=== PATIENT | female | born 1970 | race Caucasian/White ===

== ENCOUNTER 2016-07-05 18:07 | Emergency (ER) | payer BC ==
[2016-07-05 19:04] VITALS: TEMP 98.2; BMI 21.1
[2016-07-05 19:23] LABS: AUTOMATED BASOPHIL 1.2 % (0-2); AUTOMATED EOSINOPHIL 1.4 % (0-5); AUTOMATED LYMPH 21.7 % (17-44); AUTOMATED MONOCYTE 6.7 % (3-10); MPV 10.5 fL (7.4-10.4)
[2016-07-05] MEDS ORDERED: METRONIDAZOLE 500 MG TAB PO ONE (19:51)
[2016-07-05] MEDS ORDERED: CIPROFLOXACIN HCL 500 MG TAB PO ONE (19:51)
[2016-07-05] MEDS ORDERED: OXYCODONE HCL 5 MG TABLET PO ONE (19:51)
[2016-07-05] MEDS ORDERED: METHYLPREDNISOLONE 125 MG/2 ML VIAL IM ONE (19:51)
[2016-07-05 19:52] LABS: LEUKOCYTES/URINE NEG (NEGATIVE); NITRITE/URINE NEG (NEGATIVE); RBC/URINE 0-2 (0-5); URINE OCCULT BLOOD NEG (NEG/TRACE)
[2016-07-05] MEDS ORDERED: DICYCLOMINE 10 MG/5 ML SYRUP PO ONE (19:52)
--- NOTE | 2016-07-05 19:54 | EDPRACDOC ---
- General Information Chief Complaint: Abdominal Pain Stated Complaint: ABDOMINAL PAIN Time Seen by Provider: 07/05/16 19:38 Information Source: Patient Mode Of Arrival: Car Home Medications: Home Medications Butalb/Acetaminophen/Caffeine [Fioricet Tablet (50mg/325mg/40mg)] 2 tab PO Q4H PRN 07/05/16 Ciprofloxacin HCl [Cipro] 500 mg PO .BID X 10D 07/05/16 Ciprofloxacin HCl [Cipro] 500 mg PO BID #20 tab 07/05/16 Dicyclomine HCl [Bentyl] 20 mg PO Q6H #30 tablet 07/05/16 Metronidazole [Flagyl] 500 mg PO BID 07/05/16 Metronidazole [Flagyl] 500 mg PO TID #30 tab 07/05/16 Oxycodone Immediate Release [Oxycodone Immediate Release (OxyIR)] 5 mg PO Q4H PRN #20 tab 07/05/16 Prednisone [Deltasone] 20 mg PO BID #12 tablet 07/05/16 Allergies/Adverse Reactions: Allergies Allergy/AdvReac Type Severity Reaction Status Date / Time No Known Allergies Allergy Verified 07/03/15 21:45 - History of Present Illness Onset: 1 week HPI: PT PRESENTS TO ED WITH DIFFUSE ABD CRAMPING WITH DIARRHEA FOR APPROX 1 WEEK. STATES SHE HAS CROHNS DZ AND THIS FEELS LIKE A FLARE UP. Pain Location: Reports: Diffuse Pain Context: Reports: Spontaneous Pain Severity: Moderate Pain Quality: Reports: Aching, Cramping, Sharp Pain Radiation: Reports: No Radiation : No Control Method: Reports: None Adult Abdominal History: Reports: Similar Pain (dx) Modifying Factors: improves with: Nothing Female Associated Signs & Symptoms: Reports: Diarrhea, Other (ABD PAIN CRAMPING AND INTERMITTENT DIARRHEA) Oral Intake: Normal Urinary Output: Normal ED Past Medical History - History Reviewed Yes Nurses notes reviewed and agree except as marked Travel Outside of [place] in the Last 3 Months?: No - Patient Medical History Cardiac History: Reports: Hypertension GI/ History: Reports: IBD (CROHNS) Psychological History: Denies: Depression Systemic History: Reports: Anemia. Denies: Cancer - Family Medical History Reports: Diabetes (grandmother), Cancer (aunts), Stroke (father), Cardiac Disorders (FATHER). Denies: Hypertension - Social Medical History Smoking Status: Heavy tobacco smoker (5 or more cigarettes/day or daily pipe/ cigar) ETOH: None Substance Abuse: None Lives With: Other Lives In: Home EDM Review of Systems - Review of Systems ROS Negative Except as Marked: Yes All systems reviewed and were negative except as marked Constitutional: No Symptoms Reported. negative: Fever, Chills, Weakness, Fatigue, Loss of Appetite Eyes: No Symptoms Reported. negative: Redness, Blurred Vision, Double Vision, Discharge, Pain, Light Sensitive, Photophobia Ears: No Symptoms Reported. negative: Pain, Hearing Loss, Drainage, Ear Pulling Throat: No Symptoms Reported. negative: Pain, Swelling Nose: No Symptoms Reported. negative: Congestion, Bleeding, Discharge, Injection, Swelling, Deformity, Ecchymosis, Tender, Abrasion, Laceration Mouth: No Symptoms Reported. negative: Pain, Drooling Respiratory: No Symptoms Reported. negative: Cough, Brassy Cough, Barky Cough, Shortness of Breath, Wheezing, Hemoptysis Cardiovascular: No Symptoms Reported. negative: Chest Pain, Palpitations, Syncope, Edema, Orthopnea, PND, Skin Mottling, Cyanosis Gastrointestinal: Diarrhea, Pain. negative: Constipation, Formula Intolerance, Melena, Nausea, Vomiting Genitourinary: No Symptoms Reported. negative: Dysuria, Hematuria, Frequency, Discharge, Bleeding, Testicular Pain, Neurological: No Symptoms Reported. negative: Headache, Dizziness, Seizure, Numbness, Weakness, Speech Difficulty, Gait Difficulty Musculoskeletal: No Symptoms Reported. negative: Neck, Chestwall, Ribs, Back, Shoulder, Arm, Elbow, Forearm, Wrist, Hand, Pelvis, Hip, Femur, Knee, Leg, Ankle , Foot Integumentary: No Symptoms Reported. negative: Itching, Rash, Bruising, Wound Allergic/Immunologic: No Symptoms Reported. negative: Hives, Itching Hematologic: No Symptoms Reported. negative: Lymphadenopathy, Easy Bruising, Easy Bleeding Endocrine: No Symptoms Reported. negative: Weight Gain, Weight Loss Psychiatric: No Symptoms Reported. negative: Anxiety, Depression, Hallucinations, Insomnia, Suicidal - Physical Exam Constitutional: No apparent distress, Alert Oriented to: Time, Person, Place Last recorded Vital Signs: Last Vital Signs Temp 98.2 F 07/05/16 19:00 Pulse 67 07/05/16 20:22 Resp 20 07/05/16 20:22 BP 169/84 07/05/16 20:22 Pulse Ox 99 07/05/16 20:22 Oxygen Pulse Oxygen Saturation 99 O2 Device Room Air Oxygen Flow Rate Fraction of Inspired Oxygen ( FIO2) - HEENT Head: Normal ( normocephalic) Eye Exam: Normal (PERRL, EOMI, Sclera white) Oropharynx: Normal (Pharynx:Moist without exudate,Gums-no swelling) Tympanic Membrane: Normal ENT EAC: Normal TMJ: Normal Nose: No Symptoms Reported (septum midline) Neck: Normal (FROM, trachea at midline) - Respiratory/Cardiovascular Respiratory: Normal - CTA (BBS clear to auscultation without adventitious sounds ) Cardiovascular: Normal (RRR without murmur, gallop or rub) - GI Auscultation: Normal (NABS) Palpation: Normal (Soft,No rebound or guarding, non distended) Tenderness: Diffuse, Mild Sommer's Sign: Negative - Musculoskeletal Back: Normal (Non-Tender) Extremities: Normal (Normal tone, Pulses 2+ No cyanosis or edema, FROM) - Integumentary Skin: Normal, Warm, Dry Lymphatics: Normal (no adenopathy) - Neurologic Memory Impaired: Normal Motor Function: Normal (Normal tone, Pulses 2+ No cyanosis or edema, FROM) Cranial Nerve: Normal (CN II-X11 intact sensation, strength 5/5) Cerebellar: Normal Mood Description: Normal Perception: Normal - Differential Diagnosis Constipation, IBS, Inflammatory Bowel Dz, Other - Re-evaluation Re-evaluation 1 Re-evaluation Time: 20:52 (PT STATES FEELING SOME BETTER) - Results 07/05/16 19:03 07/05/16 19:03 WBC 5.8 xk/uL (3.8-10.8) 07/05/16 19:03 RBC 5.00 xM/uL (4.20-5.40) 07/05/16 19:03 Hgb 12.7 g/dL (12.0-16.0) 07/05/16 19:03 Hct 40.2 % (36-47) 07/05/16 19:03 MCV 80 fL (81-99) L 07/05/16 19:03 MCH 25.4 pg (27-32) L 07/05/16 19:03 MCHC 31.7 g/dl (33-36) L 07/05/16 19:03 RDW 18.6 % (11.5-14.5) H 07/05/16 19:03 Plt Count 274 xk/uL (130-400) 07/05/16 19:03 MPV 10.5 fL (7.4-10.4) H 07/05/16 19:03 Neut % (Auto) 69.0 % (45-76) 07/05/16 19:03 Lymph % (Auto) 21.7 % (17-44) 07/05/16 19:03 [place] % (Auto) 6.7 % (3-10) 07/05/16 19:03 Eos % (Auto) 1.4 % (0-5) 07/05/16 19:03 Baso % (Auto) 1.2 % (0-2) 07/05/16 19:03 Absolute Neuts (auto) 4.00 xk/uL (1.7-8.2) 07/05/16 19:03 Absolute Lymphs (auto) 1.22 xk/uL (0.65-4.75) 07/05/16 19:03 Sodium 137 mEq/L (137-146) 07/05/16 19:03 Potassium 4.0 mEq/L (3.5-5.1) 07/05/16 19:03 Chloride 105 mEq/L (98-107) 07/05/16 19:03 Carbon Dioxide 24 mMOL/L (22-33) 07/05/16 19:03 Anion Gap 12 mEq/L (8-16) 07/05/16 19:03 BUN 10 MG/DL (7-17) 07/05/16 19:03 Creatinine 0.50 MG/DL (0.52-1.04) L 07/05/16 19:03 Estimated GFR (MDRD) > 60 mL/min (>=60) 07/05/16 19:03 Glucose 89 MG/DL (70-99) 07/05/16 19:03 Calculated Osmolality 262 MOs/Kg (270-290) L 07/05/16 19:03 Calcium 8.6 MG/DL (8.4-10.2) 07/05/16 19:03 Corrected Calcium 8.8 MG/DL (8.4-10.2) 07/05/16 19:03 Total Bilirubin 0.3 MG/DL (0.2-1.3) 07/05/16 19:03 AST 20 IU/L (14-36) 07/05/16 19:03 ALT 25 IU/L (9-52) 07/05/16 19:03 Alkaline Phosphatase 61 IU/L (38-126) 07/05/16 19:03 Total Protein 6.9 G/DL (6.3-8.2) 07/05/16 19:03 Albumin 3.8 G/DL (3.5-5.0) 07/05/16 19:03 Lipase 50 U/L (23-300) 07/05/16 19:03 Urine Color Yellow 07/05/16 19:03 Urine Clarity Clear 07/05/16 19:03 Urine pH 5.0 (5.0-8.0) 07/05/16 19:03 Ur Specific [place] 1.015 (1.003-1.035) 07/05/16 19:03 Urine Protein Neg (NEG/TRACE) 07/05/16 19:03 Urine Glucose (UA) Neg (NEGATIVE) 07/05/16 19:03 Urine Ketones Neg (NEGATIVE) 07/05/16 19:03 Urine Occult Blood Neg (NEG/TRACE) 07/05/16 19:03 Urine Nitrite Neg (NEGATIVE) 07/05/16 19:03 Urine Bilirubin Neg (NEGATIVE) 07/05/16 19:03 Urine Urobilinogen <2.0 MG/DL (0-1) 07/05/16 19:03 Ur Leukocyte Esterase Neg (NEGATIVE) 07/05/16 19:03 Urine RBC 0-2 (0-5) 07/05/16 19:03 Ur Epithelial Cells 1+ 07/05/16 19:03 Urine Mucus Occ (NEG/OCC) 07/05/16 19:03 Lab Results 07/05/16 07/05/16 07/05/16 19:03 19:03 19:03 WBC 5.8 RBC 5.00 Hgb 12.7 Hct 40.2 MCV 80 L MCH 25.4 L MCHC 31.7 L RDW 18.6 H Plt Count 274 MPV 10.5 H Neut % (Auto) 69.0 Lymph % (Auto) 21.7 [place] % (Auto) 6.7 Eos % (Auto) 1.4 Baso % (Auto) 1.2 Absolute Neuts (auto) 4.00 Absolute Lymphs (auto) 1.22 Sodium 137 Potassium 4.0 Chloride 105 Carbon Dioxide 24 Anion Gap 12 BUN 10 Creatinine 0.50 L Estimated GFR (MDRD) > 60 Glucose 89 Calculated Osmolality 262 L Calcium 8.6 Corrected Calcium 8.8 Total Bilirubin 0.3 AST 20 ALT 25 Alkaline Phosphatase 61 Total Protein 6.9 Albumin 3.8 Lipase 50 Urine Color Yellow Urine Clarity Clear Urine pH 5.0 Ur Specific [place] 1.015 Urine Protein Neg Urine Glucose (UA) Neg Urine Ketones Neg Urine Occult Blood Neg Urine Nitrite Neg Urine Bilirubin Neg Urine Urobilinogen <2.0 Ur Leukocyte Esterase Neg Urine RBC 0-2 Ur Epithelial Cells 1+ Urine Mucus Occ Decision Time to Discharge: 20:53 - Departure Disposition: Home Condition: Stable Final Diagnosis: ACUTE EXACERBATION OF CROHNS DISEASE Instructions: Crohn Disease (ED), Acute Abdominal Pain (ED) Education/Counseling Given To: Patient Education/Counseling Given Regarding: Diagnosis, Treatment, Prognosis, Follow Up Referrals: Faustino Cross PA [NonStaff] - One Week Prescriptions: New Ciprofloxacin HCl [Cipro] 500 mg PO BID #20 tab Dicyclomine HCl [Bentyl] 20 mg PO Q6H #30 tablet Metronidazole [Flagyl] 500 mg PO TID #30 tab Oxycodone Immediate Release [Oxycodone Immediate Release (OxyIR)] 5 mg PO Q4H PRN #20 tab PRN Reason: Pain Prednisone [Deltasone] 20 mg PO BID #12 tablet No Action Metronidazole [Flagyl] 500 mg PO BID Ciprofloxacin HCl [Cipro] 500 mg PO .BID X 10D Butalb/Acetaminophen/Caffeine [Fioricet Tablet (50mg/325mg/40mg)] 2 tab PO Q4H PRN PRN Reason: Headache
[2016-07-05 20:00] LABS: BLOOD UREA NITROGEN 10 MG/DL (7-17); CALC CORRECTED 8.8 MG/DL (8.4-10.2); CALCIUM 8.6 MG/DL (8.4-10.2); CALCULATED OSMOLALITY 262 MOs/Kg (270-290); CHLORIDE 105 mEq/L (98-107); GLUCOSE 89 MG/DL (70-99); SODIUM LEVEL 137 mEq/L (137-146); TOTAL PROTEIN 6.9 G/DL (6.3-8.2)
[2016-07-05 21:20] VITALS: BP 178/89; PULSE 63
== END 2016-07-05 21:05 | disposition home or self-care (01) ==
LOC: ED 18:07
DX: K50.90 Crohn's disease, unspecified, without complications (principal)
CPT/HCPCS: 36415; 80053; 81001; 83690; 85025; 96372; 99283; J2930; J3490